=== PATIENT | female | born 1955 | race Caucasian/White ===

== ENCOUNTER → 2017-01-10 | Outpatient (CLI) | payer BC, OTHER ==
[2017-01-10 07:12] LABS: BASO # 0.1 10^3/uL (0.0-0.2); BASO % 1.5 % (0.0-1.0); EOS # 0.1 10^3/uL (0.0-0.50); EOS % 2.5 % (0.0-3.0); LYMPH # 1.8 10^3/uL (1.5-4.5); MEAN CORPUSCULAR HEMOGLOBIN 29.7 pg (27.0-33.0); MEAN CORPUSCULAR HGB CONC 32.9 g/dl (32.0-36.5); MEAN CORPUSCULAR VOLUME 90.4 fl (80.0-96.0); MONO # 0.5 10^3/uL (0.0-0.8); MONO % 13.1 % (0.0-5.0); NEUTROPHILS # 1.5 10^3/uL (1.8-7.7); NEUTROPHILS % 37.9 % (36.0-66.0); PLATELET COUNT, AUTOMATED 264 10^3/uL (150-450); RED CELL DISTRIBUTION WIDTH 12.4 % (11.5-14.5)
[2017-01-10 07:37] LABS: ALBUMIN/GLOBULIN RATIO 1.21 (1.00-1.93); ALKALINE PHOSPHATASE 65 U/L (45-117); ALT/SGPT 44 U/L (12-78); ANION GAP 5 MEQ/L (8-16); AST/SGOT 22 U/L (15-37); BILIRUBIN,TOTAL 0.4 MG/DL (0.2-1.0); BLOOD UREA NITROGEN 17 MG/DL (7-18); CALCIUM LEVEL 9.9 MG/DL (8.8-10.2); CARBON DIOXIDE LEVEL 29 MEQ/L (21-32); CHLORIDE LEVEL 105 MEQ/L (98-107); CHOLESTEROL LEVEL 248 MG/DL (<200); CREATININE FOR GFR 0.96 MG/DL (0.55-1.02); GLOMERULAR FILTRATION RATE > 60.0 (>45); GLUCOSE, FASTING 90 MG/DL (80-110); POTASSIUM SERUM 4.9 MEQ/L (3.5-5.1); SODIUM LEVEL 139 MEQ/L (136-145); TOTAL PROTEIN 7.3 GM/DL (6.4-8.2); TRIGLYCERIDES LEVEL 48 MG/DL (<150)
== END ==
LOC: M LAB 06:30
PROVIDERS: ATTEND Family Medicine
DX: Z00.00 Encounter for general adult medical examination without abnormal findings (principal)

== ENCOUNTER → 2017-04-29 | Outpatient (REF) | payer BC, OTHER ==
[2017-04-29 20:18] LABS: APPEARANCE, URINE CLEAR (CLEAR); BACTERIA, URINE AUTO 1+ (NEGATIVE); BILIRUBIN, URINE AUTO NEGATIVE (NEGATIVE); BLOOD, URINE BLOOD NEGATIVE (NEGATIVE); COLOR, URINE AMBER (YELLOW); GLUCOSE, URINE (UA) AUTO NEGATIVE (NEGATIVE); KETONE, URINE AUTO NEGATIVE (NEGATIVE); LEUKOCYTE ESTERASE, URINE AUTO NEGATIVE (NEGATIVE); NITRITE, URINE AUTO POSITIVE (NEGATIVE); PROTEIN, URINE AUTO NEGATIVE (NEGATIVE); RBC, URINE AUTO 0 /HPF (0-3); SPECIFIC GRAVITY URINE AUTO 1.004 (1.002-1.035); SQUAMOUS EPITHELIAL CELL UR AU 0 /HPF (0-6); WBC, URINE AUTO 0 /HPF (0-3)
== END ==
LOC: M LAB REF 16:59
DX: R30.9 Painful micturition, unspecified (principal)
CPT/HCPCS: 81001

== ENCOUNTER → 2017-06-26 | Outpatient (CLI) | payer BC, OTHER | LOC: M RAD 12:47 | DX: J32.4 Chronic pansinusitis (principal) | CPT/HCPCS: 70486 ==

== ENCOUNTER → 2017-07-31 | Outpatient (REF) | payer OTHER ==
[2017-08-02 14:11] LABS: HPV HYBRID CAPTURE II Negative (Negative)
== END ==
LOC: M LAB REF 14:54
DX: Z01.419 Encounter for gynecological examination (general) (routine) without abnormal findings (principal)

== ENCOUNTER → 2018-03-04 | Outpatient (REF) | payer OTHER | LOC: M LAB REF 19:05 | DX: N60.11 Diffuse cystic mastopathy of right breast (principal) | CPT/HCPCS: 88305 ==

== ENCOUNTER → 2019-05-19 | Outpatient (REF) | payer OTHER | LOC: M LAB REF 11:41 | PROVIDERS: ATTEND Dermatology | DX: L57.0 Actinic keratosis (principal) ==

== ENCOUNTER → 2019-12-02 | Outpatient (CLI) | payer BC, OTHER ==
[~2019-12-02] VITALS: Ht 170.2 cm; Wt 161.0 kg
[~2019-12-02] MED LIST: ACET-908 PO; ASPI81TA86 PO; BENA25CA4 PO; CALC500T61 PO; D31000TA2 PO; DESO0.0557 TD; LORA-674 PO; METH1TAB40 PO; ONDA4TAB6 SL; VITA100T14 PO; VOLT1GEL15 TOP
--- NOTE | 2019-12-02 15:38 | RADONC.CN ---
Radiation Oncology Hx/Consult Radiation Oncology Consult Date of Service: Dec 02, 2019 Pt Identifier Jesenia Zaman is a 64 year old female with a history of right breast cancer pT1cN1(mi)M0 ER/AR/HER2+ grade 3. 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 She is seen today for consideration of PMRT. Diagnosis/Treatment History Oncologic History She had a mammogram on 03/02/19 which showed a focus of microcalcifications in the right breast. This was followed by biopsy which showed DCIS with possible microinvasion. The initial focus was ~T2 in size, however EOD MRI revealed a much larger area of concern. Lumpectomy w/ SLNB was performed on 05/19/19 which showed a 1.4 cm focus of IDC triple positive, and a micrometastasis in the SLN. There was extensive intraductal component extending to the margins. The margins were uninvolved by IDC. She then had AC+T and Her2-directed systemic therapy. Upon completion of systemic therapy she and her surgeon decided to pursue BL mastectomies d/t concern about the margins around the DCIS. She had these on 11/16/19. Final pathology revealed no IDC, and a single minute focus suggestive of DCIS. The pathology from the left was negative. Interval History She is here today with her feeling overwhelmed by all the treatment she has gone through. She still has multiple drains present from her surgery. She has no swelling in the arms, no pain to report today. Her appetite is good, her energy levels are low dating back to chemotherapy. She is seeing her plastic surgeon in the coming week and hopeful to have some drains removed. Breast History Postmenopausal OCP use 20+ years No HRT Past Medical History: GERD Past Surgical History: Tonsillectomy EGD Family History: No family cancer history Social History: 14 drinks per week Never smoker Allergies / Meds Allergies: Coded Allergies: adhesive tape (Verified Allergy, Mild, rash/hives, 12/02/19) oxycodone (Verified Adverse Reaction, Mild, Nausea/Vomiting, 12/02/19) Home Meds Reported Medications Aspirin (Aspir 81) 81 Mg Tablet.dr, 1 TAB PO DAILY for pain 12/02/19 Diclofenac Sodium (Voltaren) 100 Gm Gel..gram., 1 GRAM TOP PRN PRN for PAIN apply to affected area(s) 12/02/19 Cholecalciferol (Vitamin D3) (Vitamin D3) 1,000 Unit Tablet, 2000 UNITS PO DAILY, TAB 12/02/19 Diphenhydramine HCl (Benadryl) 25 Mg Capsule, 25 MG PO PRN PRN for RASH for 30 Days, #60 CAP 12/02/19 Acetaminophen (Acetaminophen) 325 Mg Tablet, 650 MG PO PRN PRN for PAIN, TAB 12/02/19 Loratadine (Loratadine) 10 Mg Tablet, 1 TAB PO DAILY for allergy symptoms for 30 Days, #30 TAB 12/02/19 Pyridoxine HCl (Vitamin B6) (Vitamin B-6) 100 Mg Tablet, 1 TAB PO DAILY for 30 Days, #60 TAB 12/02/19 Calcium Carbonate (Calcium Carbonate) 500 Mg Tablet, 750 MG PO DAILY for 30 Days, #60 TAB 12/02/19 Methocarbamol (Methocarbamol) 500 Mg Tablet, 1 TAB PO PRN PRN for PAIN 12/02/19 Ondansetron (Ondansetron Odt) 4 Mg Tab.rapdis, 1 TAB SL PRN PRN for NAUSEA 12/02/19 Desonide (Desonide) 15 Gm Cream..g., 1 APPLIC TD PRN PRN for RASH 12/02/19 Review of Systems General: Reports: Fatigue, Normal Appetite; Denies: Malaise Constitutional: Denies: Chills, Fever, Night Sweats Eyes: Denies: Pain, Vision change HEENT: Denies: Head Aches, Dysphagia, Sore Throat Skin: Denies: Rash, Lesions, Bruising Pulmonary: Denies: Dyspnea, Cough Cardiovascular: Denies: Chest Pain, Palpitations, Edema Gastrointestinal: Denies: Nausea, Vomiting, Abdominal Pain, Diarrhea Genitourinary: Denies: Dysuria, Frequency, Incontinence Hematologic: Denies: Bruising, Petecchia, Enlarged Lymph Nodes Musculoskeletal: Denies: Neck pain, Back pain Neurological: Denies: Weakness, Numbness, Incoordination Psych: Reports: Mood Normal; Denies: Memory Issues, Thoughts of Self Harm Vital Signs Ht 67" Wt 161lb BMI 25 T 98.3 P 56 RR 14 BP 146/80 O2 100% General Exam: Positive: Alert, Cooperative, No Acute Distress Eye Exam: Positive: PERRLA, EOMI ENT EXAM: Positive: Mucous membr. moist/pink, Pharynx Normal Neck Exam: Negative: Thyromegaly, Lymphadenopathy Chest Exam: Positive: Normal air movement; Negative: Rales, Rhonchi, Wheezing Heart Exam: Positive: Rate Normal, Regular Rhythm Breast Exam: Positive: Symmetric Bilaterally (Reconstructed breasts symetric tissue expanders palpable, incisions well healed, axillae without masses BL) Abdomen Exam: Positive: Soft; Negative: Tenderness, Mass Extremity Exam: Negative: Edema, Tenderness Skin Exam: Positive: Nl turgor and temperature; Negative: Rash Neuro Exam: Positive: Normal Gait, Normal Speech, Cranial Nerves 3-12 NL Psych Exam: Positive: Mental status NL, Mood NL, Memory Intact Diagnostic and Laboratory Diagnostic Review Radiologic images, relevant labs and pathology reports were personally reviewed and discussed with Ms. Zaman. Assessment and Plan Impression Ms. Zaman is a 64 year old female with a history of right breast cancer pT1cN1(mi)M0 ER/AR/HER2+ grade 3. 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 She is seen today for consideration of PMRT. Stage [id number](mi)M0 --> [id number] ER/AR/HER2+ Grade 3 IDC of the right breast Performance Status ECOG 0 Plan We had an extensive discussion with Ms. Zaman regarding the diagnosis at hand and available therapeutic options. I explained that based on her final staging after BL mastectomies that she does not need PMRT given there was no residual invasive cancer in the specimen. Her history of kari micrometastasis on its own does not warrant axillary RT either given the systemic therapy she has undergone and will continue to go through, given triple positive status. She was happy to hear this. I remain available to assist in her care in the future if needed. We instructed the patient that if there were any questions,concerns or changes in clinical status in the interim to contact us. Recommendations No indication for PMRT Follow up as needed DEEPTI SWEET MD Dec 02, 2019 15:38
== END ==
LOC: M ONCR 12:58
PROVIDERS: ATTEND General Practice
DX: Z85.3 Personal history of malignant neoplasm of breast (principal); Z90.13 Acquired absence of bilateral breasts and nipples

== ENCOUNTER → 2020-05-16 | Outpatient (CLI) | payer SELFPAY ==
[~2020-05-16] MED LIST changes: +METH-1164 PO; -METH1TAB40 PO
== END ==
LOC: M LABSMTC 14:09
PROVIDERS: ATTEND Pediatrics
DX: Z20.822 Contact with and (suspected) exposure to COVID-19 (principal)

== ENCOUNTER → 2020-07-20 | Outpatient (REF) | payer OTHER ==
[~2020-07-20] MED LIST changes: -ACET-908 PO; +ACET-910 PO
== END ==
LOC: M LAB REF 13:45
PROVIDERS: ATTEND Dermatology
DX: D22.121 Melanocytic nevi of left upper eyelid, including canthus (principal)

== ENCOUNTER → 2021-05-26 | Outpatient (CLI) | payer MEDICARE, OTHER | LOC: M LABSMTC 11:38 | PROVIDERS: ATTEND Anesthesiology | DX: Z01.812 Encounter for preprocedural laboratory examination (principal); Z20.822 Contact with and (suspected) exposure to COVID-19 ==

== ENCOUNTER 2021-05-31 12:44 | Day surgery (SDC) | payer MEDICARE, BC, OTHER ==
[~2021-05-31] VITALS: Ht 170.2 cm; Wt 68.9 kg
[~2021-05-31 12:44] MED LIST changes: +ALPH600C PO; +ANAS1TAB2 PO; +B-COCAP8 PO; -D31000TA2 PO; +DICL20GE TOP; +ECOT81TA5 PO; +NS 1,000 ML IV ONE; +TUMS500C PO; +VITA100093 PO
[2021-05-31] MEDS ORDERED: LIDOCAINE 2% 100MG/5ML SDV (FOR ANES.) As Ordered ONE (15:00)
[2021-05-31] MEDS ORDERED: propofoL 200 MG/20 ML VIAL As Ordered ONE (15:00)
[2021-05-31 15:38] VITALS: BP 121/58
== END 2021-05-31 15:57 | disposition home or self-care (01) ==
LOC: M OPP 12:44
PROVIDERS: ATTEND Internal Medicine Gastroenterology
DX: Z12.11 Encounter for screening for malignant neoplasm of colon (principal); Z86.010 Personal history of colon polyps; K57.30 Diverticulosis of large intestine without perforation or abscess without bleeding; K64.8 Other hemorrhoids; Z79.82 Long term (current) use of aspirin; Z79.899 Other long term (current) drug therapy; Z88.5 Allergy status to narcotic agent; Z88.8 Allergy status to other drugs, medicaments and biological substances; Z91.048 Other nonmedicinal substance allergy status; Z92.21 Personal history of antineoplastic chemotherapy; Z85.3 Personal history of malignant neoplasm of breast

== ENCOUNTER → 2021-06-27 | Outpatient (CLI) | payer MEDICARE, BC, OTHER ==
[~2021-06-27] MED LIST changes: -NS 1,000 ML IV ONE
== END ==
LOC: M WHC 14:28
PROVIDERS: ATTEND Internal Medicine Hematology & Oncology
DX: C50.911 Malignant neoplasm of unspecified site of right female breast (principal); M85.89 Other specified disorders of bone density and structure, multiple sites

== ENCOUNTER → 2023-11-04 | Outpatient (REF) | payer MEDICARE, BC ==
[~2023-11-04] MED LIST changes: +LORA-1041 PO; -LORA-674 PO; +ONDA-282 SL; -ONDA4TAB6 SL
== END ==
LOC: M SFHCDERM 07:54
PROVIDERS: ATTEND Physician Assistant
DX: L72.0 Epidermal cyst (principal)

== ENCOUNTER → 2023-11-14 | Outpatient (REF) | payer MEDICARE, BC | LOC: M SFHCPLAZ 13:49 | PROVIDERS: ATTEND Nurse Practitioner Family | DX: T14.90XD Injury, unspecified, subsequent encounter (principal) ==

== ENCOUNTER → 2024-10-13 | Outpatient (REF) | payer MEDICARE, OTHER ==
[~2024-10-13] MED LIST changes: -ALPH600C PO; +ALPH600C2 PO; -B-COCAP8 PO; +VITA1CAP55 PO
== END ==
LOC: M SFHCDERM 13:19
PROVIDERS: ATTEND Physician Assistant
DX: D48.9 Neoplasm of uncertain behavior, unspecified (principal)